=== PATIENT | female | born 1990 ===

== ENCOUNTER 2017-08-30 16:31 | Emergency (ER) | payer OTHER ==
[2017-08-30 16:46] VITALS: PULSE 75; RESP 16; O2SAT 100
[2017-08-30] MEDS ORDERED: Sodium Chloride 0.9% 1,000 ML IV ONE (17:18)
--- NOTE | 2017-08-30 18:00 | ED PDOC ---
HPI: Female Pain Time Seen by Provider: 08/30/17 17:07 Chief Complaint (Nursing): Abdominal Pain History Per: Patient, Equities Trader (burse pillar) History/Exam Limitations: no limitations Onset/Duration Of Symptoms: Days (1 week), Gradual Current Symptoms Are (Timing): Still Present Severity: Mild Quality Of Discomfort: Dull, Cramping Associated Symptoms: Nausea, Vomiting. denies: Fever, Chills, Diarrhea, Back Pain, Chest Pain, Constipation, Urinary Symptoms Alleviating Factors: None Additional History Per: Patient Abnormal Vaginal Bleeding: No Past Medical History Reviewed: Historical Data, Nursing Documentation, Vital Signs Vital Signs: Last Vital Signs Temp 97.6 F 08/30/17 16:43 Pulse 75 08/30/17 16:43 Resp 16 08/30/17 16:43 BP 116/68 08/30/17 16:43 Pulse Ox 100 08/30/17 16:43 - Medical History PMH: No Chronic Diseases - Family History Family History: States: Unknown Family Hx - Living Arrangements Living Arrangements: With Family - Social History Current smoker - smoking cessation education provided: No - Home Medications Home Medications: Ambulatory Orders Medication Instructions Recorded Multivit/Folic Acid/I 1 tab PO DAILY #30 tab 08/30/17 [ Plus] - Allergies Allergies/Adverse Reactions: Allergies Allergy/AdvReac Type Severity Reaction Status Date / Time No Known Allergies Allergy Verified 08/30/17 16:43 Review of Systems ROS Statement: Except As Marked, All Systems Reviewed And Found Negative Constitutional: Negative for: Fever, Chills Cardiovascular: Negative for: Chest Pain, Palpitations Respiratory: Negative for: Cough, Shortness of Breath Gastrointestinal: Positive for: Nausea, Vomiting Genitourinary Female: Positive for: Pelvic Pain. Negative for: Vaginal Discharge, Vaginal Bleeding Neurological: Negative for: Weakness, Numbness Physical Exam - Reviewed Vital Signs Reviewed: Yes - Physical Exam Appears: Positive for: Uncomfortable Head Exam: Positive for: ATRAUMATIC, NORMAL INSPECTION, NORMOCEPHALIC Eye Exam: Positive for: Normal appearance. Negative for: Nystagmus, Periorbital swelling, Periorbital tenderness, Conjunctival injection, Scleral icterus Neck: Positive for: Normal, Painless ROM, Supple. Negative for: Decreased ROM, Limited ROM, Trachea Midline, Pain On Movement Of Neck Cardiovascular/Chest: Positive for: Regular Rate, Rhythm, Chest Non Tender. Negative for: Edema, Gallop, Murmur, Bradycardia, Tachycardia Respiratory: Positive for: Normal Breath Sounds. Negative for: Decreased Breath Sounds, Accessory Muscle Use, Crackles, Rales, Rhonchi, Stridor, Wheezing Pulses-Radial (L): 2+ Pulses-Radial (R): 2+ Gastrointestinal/Abdominal: Positive for: Normal Exam, Bowel Sounds, Soft. Negative for: Tenderness Back: Positive for: Normal Inspection. Negative for: L CVA Tenderness, R CVA Tenderness Extremity: Positive for: Normal ROM. Negative for: Tenderness, Pedal Edema, Calf Tenderness, Deformity, Swelling Neurologic/Psych: Positive for: Alert, hand cooper helper II-XII, Oriented. Negative for: Motor/Sensory Deficits - Laboratory Results Result Diagrams: 08/30/17 18:19 08/30/17 18:19 - ECG O2 Sat by Pulse Oximetry: 100 - Progress ED Course And Treament: Uterus: Single intrauterine gestation identified. pole and yolk sac are seen. Estimated gestational age is 7 weeks, 6 days, based on the crown rump length. Estimated delivery date is 04/15/2018. heart motion visualized, at 189 beats per minute. Note that the anatomy, amniotic fluid volume, and placental position cannot be evaluated at this early gestational age. A large 3.5 x 2.7 cm round, well-defined cystic mass is identified in the cervix, which appears minimally complex, containing low level echoes. This most likely represents a large Nabothian cyst. Cervix appears closed, and is normal in length, measuring 3.8 cm. advise vitamins and close f/u with ob. all of pt's questions were answered and pt agree's with plan, repepat abd exam non tender. pt leaves ambulatory and in good spirits. Re-evaluation Time: 20:00 Condition: Improved Disposition - Clinical Impression Clinical Impression: - Patient ED Disposition Is Patient to be Admitted: No Counseled Patient/Family Regarding: Studies Performed, Diagnosis, Need For Followup - Disposition Referrals: [facility] [Outside] (2 to 3 days) Disposition: Routine/Home Disposition Time: 20:00 Condition: GOOD Prescriptions: Multivit/Folic Acid/I [ Plus] 1 tab PO DAILY #30 tab Instructions: - The Second Month Forms: [employer] (Serbian)
[2017-08-30 18:31] LABS: SQUAMOUS EPITHIAL 1 /hpf (0-5); URINE BACTERIA RARE (<OCC); URINE BILIRUBIN NEGATIVE (NEGATIVE); URINE BLOOD NEGATIVE (NEGATIVE); URINE CLARITY SLIGHTY-CLOUDY (Clear); URINE COLOR YELLOW (YELLOW); URINE GLUCOSE (UA) NEG (Normal); URINE LEUKOCYTE ESTERASE TRACE Leu/uL (Negative); URINE PROTEIN NEGATIVE (NEGATIVE); URINE UROBILINOGEN 0.2-1.0 mg/dL (0.2-1.0)
[2017-08-30 18:36] LABS: BASO % 0.1 % (0.0-2.0); EOS # 0.1 K/uL (0.0-0.7); EOS % 0.7 % (0.0-4.0); HEMOGLOBIN 12.8 g/dL (12.0-16.0); LYMPH # 2.7 K/uL (1.0-4.3); LYMPH % 29.1 % (20.0-40.0); MEAN CORPUSCULAR HEMOGLOBIN 29.7 pg (27.0-31.0); MEAN CORPUSCULAR HGB CONC 34.1 g/dL (33.0-37.0); MEAN PLATELET VOLUME 8.1 fl (7.2-11.7); MONO # 0.7 K/uL (0.0-0.8); MONO % 7.4 % (0.0-10.0); NEUT # 5.8 K/uL (1.8-7.0); NEUT % 62.7 % (50.0-75.0); NRBC % 0.1 % (0.0-0.0); RBC 4.31 Mil/uL (3.80-5.20); RED CELL DISTRIBUTION WIDTH 12.8 % (11.5-14.5); WHITE BLOOD COUNT 9.3 K/uL (4.8-10.8)
[2017-08-30 18:40] LABS: ALB/GLOB RATIO 1.2 (1.0-2.1); ALBUMIN 4.2 g/dL (3.5-5.0); ALT/SGPT 32 U/L (9-52); AST/SGOT 29 U/L (14-36); BLOOD UREA NITROGEN 12 mg/dl (7-17); CALCIUM 9.3 mg/dL (8.4-10.2); GFR AFRICAN-AMERICAN > 60; GFR NON-AFRICAN AMERICAN > 60; LIPASE 86 U/L (23-300)
--- NOTE | 2017-08-30 20:26 | US ---
EXAM: US , Transvaginal EXAM DATE/TIME: 08/30/2017 5:28 PM CLINICAL HISTORY: 27 years old, female; Pain; complicated by abdominal or pelvic pain; Lower; First trimester; Gestational age or lmp: 06/30/2017; ; Additional info: Pain R/O ectopic TECHNIQUE: Real-time transvaginal obstetrical ultrasound of the maternal pelvis and a first trimester with image documentation. Transvaginal imaging was used for better evaluation of the fetus and adnexa. COMPARISON: No relevant prior studies available. FINDINGS: Uterus: Single intrauterine gestation identified. pole and yolk sac are seen. Estimated gestational age is 7 weeks, 6 days, based on the crown rump length. Estimated delivery date is 04/15/2018. heart motion visualized, at 189 beats per minute. Note that the anatomy, amniotic fluid volume, and placental position cannot be evaluated at this early gestational age. A large 3.5 x 2.7 cm round, well-defined cystic mass is identified in the cervix, which appears minimally complex, containing low level echoes. This most likely represents a large Nabothian cyst. Cervix appears closed, and is normal in length, measuring 3.8 cm. Right ovary: Within normal limits in appearance. Measures 2.5 x 2.0 x 1.8 cm. Flow seen in the right ovary on color and Doppler imaging, with no evidence of torsion. Left ovary: Within normal limits in appearance. Measures 2.4 x 1.5 x 1.4 cm. Flow seen in the left ovary on Doppler imaging, with no evidence of torsion. Cul de sac: No free fluid. IMPRESSION: 7 week, 6 day intrauterine with heart motion. 3.5 cm round, cystic mass in the cervix. Most likely, this represents a large nabothian cyst. See above for remaining findings.
[2017-08-30 21:02] VITALS: BP 104/61; TEMP 98.3
[2017-08-31 09:37] LABS: AMYLASE 101 U/L (30-110)
== END 2017-08-30 21:20 | disposition home or self-care (01) ==
LOC: H.ER 16:31
DX: O26.891 Other specified pregnancy related conditions, first trimester (principal); Z3A.01 Less than 8 weeks gestation of pregnancy

== ENCOUNTER 2018-03-30 14:16 | Emergency (ER) | payer MEDICAID, SELFPAY ==
[2018-03-30 22:18] VITALS: BP 102/58; PULSE 68; TEMP 97.9
== END 2018-03-30 16:25 | disposition home or self-care (01) ==
LOC: H.EROB2 14:16
DX: O26.853 Spotting complicating pregnancy, third trimester (principal); Z3A.38 38 weeks gestation of pregnancy

== ENCOUNTER 2018-04-03 09:10 | Inpatient (IN) | payer MEDICAID, SELFPAY ==
[2018-04-03 09:45] VITALS: BMI 27.1
[2018-04-03] MEDS ORDERED: Oxytocin 30 UNIT 30 UNITS/500 ML BAG IV ONE ×2 (10:06)
[2018-04-03] MEDS ORDERED: Lactated Ringer's 1,000 ML IV ONE (10:06)
[2018-04-03] MEDS ORDERED: OXYTOCIN/0.9 % NS 20 UNIT/1,000 ML BAG IV SCH (10:15)
[2018-04-03] MEDS ORDERED: Lactated Ringer's 1,000 ML IV SCH ×2 (10:15→14:28)
[2018-04-03 10:58] LABS: BASO % 0.3 % (0.0-2.0); EOS # 0.1 K/uL (0.0-0.7); EOS % 0.8 % (0.0-4.0); LYMPH # 2.1 K/uL (1.0-4.3); LYMPH % 25.3 % (20.0-40.0); MEAN CORPUSCULAR HEMOGLOBIN 28.3 pg (27.0-31.0); MEAN CORPUSCULAR HGB CONC 32.9 g/dL (33.0-37.0); MEAN PLATELET VOLUME 8.5 fl (7.2-11.7); MONO # 0.5 K/uL (0.0-0.8); MONO % 6.2 % (0.0-10.0); NEUT # 5.5 K/uL (1.8-7.0); NEUT % 67.4 % (50.0-75.0); NRBC % 0.1 % (0.0-0.0); RBC 4.61 Mil/uL (3.80-5.20); RED CELL DISTRIBUTION WIDTH 15.7 % (11.5-14.5); WHITE BLOOD COUNT 8.2 K/uL (4.8-10.8)
[2018-04-03] MEDS ORDERED: Lidocaine 2% MPF (5 ml) Inj ONE (11:01)
[2018-04-03] MEDS ORDERED: Oxycodone/Acetaminophen 5/325 mg Tab PO PRN ×2 (11:49→14:28)
[2018-04-03] MEDS ORDERED: Benzocaine/Menthol SPRAY TOP PRN (11:49)
--- NOTE | 2018-04-03 12:31 | OBDS ---
DELIVERY PERSONNEL Delivery Doctor: Soila Marina MD Senior Account Executive: Donny Nielsen ANueva Resident: Dr. Stas Miles MATERNAL INFORMATION Delivery Anesthesia: Local Medications in Delivery: 2% lidocaine, 30 units/500 ml pitocin Estimated Blood Loss (ml): 200 Placenta Cultured: No Maternal Complications: Precipitous Labor (<3hrs) Provider Comments: OB Staff: Dr Marina, Dr Mcclelland PGY-3, Dr Medina PGY-1 of term live male infant (11:20am), LOP over intact perineum without epidural anesthesia. Tra ce meconium, infant suctioned at perineum, no nuchal cord. Spontaneous delivery of placenta (11:27am) with 3-vessel cord. 2nd degree laceration at 6 0' clock repaired with 3-0 vicryl. EBL 200cc. Indy Mcclelland Attending Note; Delivery of baby was conducted with the Resident and I agree with the [facility] slime. LABOR SUMMARY EDC: 04/12/2018 00:00 No. Babies in Womb: 1 Attempted: No Labor Anesthesia: None LABOR INFORMATION Reason for Induction: Not Applicable Onset of Labor: 04/03/2018 00:00 Complete Dilatation: 04/03/2018 11:10 Oxytocin: Augmentation Group B Beta Strep: Negative Antibiotics # of Doses: 0 Antibiotics Time of Last Dose: n/a Steroids Given: None Reason Steroids Not Administered: Not Applicable MEMBRANES Membranes Rupture Method: Spontaneous Rupture of Membranes: 04/03/2018 07:00 Length of Rupture (hrs): 4.33 Amniotic Fluid Color: Clear Amniotic Fluid Amount: Scant Amniotic Fluid Odor: None STAGES OF LABOR Stage 1 hrs: 11 Stage 1 min: 10 Stage 2 hrs: 0 Stage 2 min: 10 Stage 3 hrs: 0 Stage 3 min: 7 Total Time in Labor hrs: 11 Total Time in Labor min: 27 VAGINAL DELIVERY Episiotomy: None Laceration Extension: Second Degree Laceration Type: Perineal Laceration Repair: Yes Laceration Repair Note: 2% lidocaine w/o epi for local anesthesia and 3-0 vicryl, running repair wit h good hemostasis and approximation of tissue. No noted defects after repair and patient tolerated pr ocedure well. Initial Vag Sponge Count: 5 Final Vag Sponge Count: 5 Initial Vag Sharps Count: 1 Final Vag Sharps Count: 1 Sponge Count Correct: Yes Sharps Count Correct: Yes BABY A INFORMATION Infant Delivery Date/Time: 04/03/2018 11:20 Method of Delivery: Vaginal Born in Route : No : N/A Forceps: N/A Vacuum Extraction: N/A Shoulder Dystocia : No SHOULDER DYSTOCIA BABY A Delivery Date/Time: 04/03/2018 11:20 PRESENTATION/POSITION BABY A Presentation: Cephalic Cephalic Presentation: Vertex Breech Presentation: N/A PLACENTA INFORMATION BABY A Placenta Delivery Time : 04/03/2018 11:27 Placenta Method of Delivery: Spontaneous Placenta Status: Delivered SCORES BABY A Heart Rate 1 min: >100 bpm Resp Effort 1 min: Good Cry Reflex Irritability 1 min: Cough or Sneeze or Pulls Away Muscle Tone 1 min: Active Motion Color 1 min: Body Rodey, Extremities Blue Resuscitation Effort 1 min: N/A SCORE 1 MIN: 9 Heart Rate 5 min: >100 bpm Resp Effort 5 min: Good Cry Reflex Irritability 5 min: Cough or Sneeze or Pulls Away Muscle Tone 5 min: Active Motion Color 5 min: Body Rodey, Extremities Blue Resuscitation Effort 5 min: N/A SCORE 5 MIN: 9 INFORMATION BABY A Gestational Age at Delivery: 38.5 Gestational Status: Term Outcome : Liveborn Infant Condition : Stable Infant Sex: Male IDENTIFICATION/MEDS BABY A ID Band Number: [id number] ID Band Location: Left Leg; Left Arm WEIGHT/LENGTH BABY A Infant Birthweight (gms): 2980 Infant Weight (lb): 6 Weight (oz): 9 CORD INFORMATION BABY A No. Cord Vessels: 2 Nuchal Cord : N/A Cord Blood Taken: Yes Infant Suction: Mouth
[2018-04-03] MEDS: Benzocaine/Menthol SPRAY TOP PRN ×2 (15:13→22:18)
--- NOTE | 2018-04-03 15:53 | OBADHP ---
Datetime: 04/03/2018 09:53 Admit Comment, IP Provider: Voice:[id number] Pt is a 27 yo 38.5wk PIERCE 04/12/18 based on U/S done on 08/30/17 came to the ED for contract ions that started last night at midnight and suspected ROM this morning at 7 am. Pt has been having c ontractions every 5-6 mins. Denies vaginal bleeding, and states the baby is moving well. Denies heada margarita, blurry vision, chest pain, SOB, nausea, vomiting, diarrhea, constipation or dysuria. PNC: Patient sees Dr. Mcclelland in [facility] PNL: unremarkable, GBS negative, ABO: O+, TDap 01/28/18, glucose 1Hr-96 OBHx: 2013-- denies complications Grants Director hx: Pap smear done last year- pt reports normal, No hx of STD's, last sexually active last wee k PMHx:None Meds: Allergies: NKDA Family Hx:None Surg Hx: Appendicitis- 2011 (scar-low transverse incision) Social: Denies alcohol, smoking or drug use PE: HEENT: NCAT, PERRLA CV: RRR, +S1,S2, no murmurs, rubs or gallops RESP: CTA, no wheezing, rales or rhonchi Abdomen: Soft, nontender, normal bowel sounds appreciated, Low transverse incision noted- pt state d from Appendix removal Grants Director: Grossly ruptured membranes-yellow/white fluid, 7cm dilated, + Nitrazine test Extremities: No edema noted A/P Pt is a 27 yo admitted for spontaneous rupture of membranes in active labor -Admit to unit initate labor protocal -Monitor heart tracings -Start Oxytocin -Pain control -Lactated Ringers @125ml/hr Case reveiwed and discussed with Dr. Cindy Medina PGY-1 Attending Note: Patient was seen and examined with resident and I agree with the above. Pelvic Type - PN: Adequate Extremities - PN: Normal Abdomen - PN: Normal Back - PN: Normal Breast - PN: Not Done Lungs - PN: Normal Heart - PN: Normal Thyroid - PN: Not Done Neurologic - PN: Normal HEENT - PN: Normal General - PN: Normal Presentation-Admit: Vertex FHR - Baseline A Provider: 140 Amniotic Fluid Color, Provider: Meconium, Light Membranes, Provider: Ruptured Contraction Comments Provider: Q2-4 Gestation - Est Wks by US: 38.5 Pool Provider: Positive Nitrazine Provider: Positive IP Hx Assessment: The History has been Reviewed and is Current Vital Signs Provider: Reviewed IP Chief Complaint: Uterine contractions; Suspected ruptured membranes NICHD Variability Prov Fetus A: Moderate 6-25bpm NICHD Accel Fetus A IP Provider: [id number] FHR Category Provider Fetus A: Category I NICHD Decel Fetus A IP Provider: None Dilatation, Provider: 7 Effacement, Provider: 70 Station, Provider: -2 Genitourinary Exam: Normal DTRs - PN: Normal EGA AdmitDate IP: 38.5 IP Adm Impression: Term, intrauterine ; Active labor; Ruptured Membranes IP Admit Plan: Admit to unit; Initiate labor protocol
[2018-04-04 05:43] LABS: HEMOGLOBIN 10.9 g/dL (12.0-16.0); MEAN CELL VOLUME 86.4 fl (81.0-99.0); MEAN CORPUSCULAR HEMOGLOBIN 28.6 pg (27.0-31.0); MEAN CORPUSCULAR HGB CONC 33.1 g/dL (33.0-37.0); RBC 3.8 Mil/uL (3.80-5.20); WHITE BLOOD COUNT 10.3 K/uL (4.8-10.8)
[2018-04-04] MEDS: Benzocaine/Menthol SPRAY TOP PRN (05:59)
--- NOTE | 2018-04-04 07:49 | OBPPN ---
Datetime: 04/04/2018 07:02 PP Pain Prov: Within normal limits PP Nausea Prov: Denies PP Flatus Prov: Yes PP BM Prov: Yes PP Breasts Prov: Not Done PP Heart Prov: Normal PP Lungs Prov: Normal PP Abdomen/Uterus Prov: Normal PP Lochia Prov: Normal PP Vulva/Perineum Prov: Not Done PP CVA Tenderness Prov: Not Done PP Extremities Prov: Normal PP C/S Incision Prov: Not Applicable PP Progress Prov: Normal PP Impression Prov: Normal progression PP Plan Prov: Continue present management PP Progress Note Prov: S: 27 yo s/p NVD on 04/03/2018 at 11:20 am. Pt. is seen and examined at bedside this AM. No significant overnight events. Pt reports occasional abdominal pain, but well cont rolled with pain meds. Pt sitting up comfortably without any difficulty. Breast and bottle feeding ba by. Tolerating diet. Lochia is similar to light menses in volume. Patient voiding without difficultie s and reports passing gas and one bowel movement. Denies fever, chills, diarrhea, nausea, vomiting, c hest pain, dyspnea, and dizziness. O: VS: stable GEN: NAD Cardio: S1S2, no M/G/R Resp: clear breath sounds b/l Abdomen: BS+, NT, Uterus is firm and at the level of the umbilicus. EXT: No edema, calves non-tender NEURO/PSYCHI: normal affect and mood Assessment/Plan: 27 yo s/p NVD on 04/03/2018 at 11:20 am. Pt remains afebrile, tolerating keith n with medication, tolerating PO, doing well on PPD 1. OOB with caution -Patient sitting up without difficulty -Ibuprofen 600mg for pain. -Colace 100mg PO BID/Senokot 17.2 mg qHS for constipation -Encourage -F/u CBC post-delivery: pending -Anticipated d/c to home, 04/05/2018. Case discussed with Dr. Lazo --- Valerie Marie, PGY1 OB Hospitalist Addendum: Pt seen and examined. Agree w/ above. PPD 1 s/p VD, doing well, breast and bottle feeding. Continue current management. (ES) IP PP Procedures: None
[2018-04-04] MEDS: Multivitamin With Minerals Tab PO SCH (08:33)
[2018-04-04] MEDS ORDERED: Multivitamin With Minerals Tab PO SCH (09:00)
[2018-04-04] MEDS ORDERED: Influenza Vaccine (5 YR UP)/PF 60 MCG/0.5 ML SYR IM ONE (09:00)
--- NOTE | 2018-04-05 08:46 | OBPPN ---
Datetime: 04/05/2018 05:59 PP Pain Prov: Within normal limits PP Nausea Prov: Denies PP Flatus Prov: Yes PP BM Prov: Yes PP Breasts Prov: Not Done PP Heart Prov: Normal PP Lungs Prov: Normal PP Abdomen/Uterus Prov: Normal PP Lochia Prov: Normal PP Vulva/Perineum Prov: Normal PP CVA Tenderness Prov: Normal PP Extremities Prov: Normal PP C/S Incision Prov: Not Applicable PP Progress Prov: Normal PP Impression Prov: Normal progression PP Plan Prov: Discharge PP Progress Note Prov: S: Patient seen this morning at bedside, she is now s/p on 04/03/18 , on her PPD 2. Pt has no complaints today. Reports minimal abdominal pain and did not ask for pain m edication last night, she is tolerating liquid diet w/o N/V, ambulating to bathroom without any diffi culties, lochia is less than menses in volume, Breast feeding w/o difficulty and using formula as com plementary. Patient reports both flatus and BM today. O: VS WNL PE: GEN: NAD HEENT: EOMI, Mucous membrane moist. RESP: CTA b/l CV: RRR, no murmurs heard ABD: soft, non-tender, uterus firm below umbilicus LE: No edema, Juan's negative. A/P 27 y/o now s/p on 04/03/18, going into her PPD2 today with normal post- progressio n. Patient is stable to be D/C home. -Encourage ambulation -Encourage -PNV 1 tab PO daily -Ibuprofen 600mg 1 tab Q6h prn for mild-mod pain -D/C home today Henrietta Arnold MD PGY1 OB Hospitalist on-call. On rounds, I saw this patient...agree with PGY1 note MAHNDO IP PP Procedures: None Vital Signs Provider PP: Reviewed; Within Normal Limits
--- NOTE | 2018-04-05 08:46 | OBDCSUM ---
Datetime: 04/05/2018 06:00 Discharged to, Provider: Home Follow up at, Provider: Dr. Mcclelland [facility] Disch Instr Activity: Normal activity; May Shower Disch Instr Diet: Regular Discharge Instructions, Provider: Routine instructions given Discharge Diagnosis, Provider: Term Delivered Discharge Time: 04/05/2018 10:00 Follow up in weeks, Provider: 05/06/18 @ 9:30 am Disch Referrals: None Contraception discussed, Prov: Yes Disch Activity Restrictions: No exercising; No lifting; No sexual activity; Nothing in vagina - Inte rcourse, tampons, douche Discharge Comment, Provider: EGA: 38.5 wk Diagnosis: 27 y/o , s/p on 04/03/18 @ 11:20 am. She delivered a baby boy, Wt 2980g, AP GAR 02/28 Summary: Patient is PPD2 with normal progression. No complications during post- period. Loch ia less than menses. Pt was able to pass gas and had BM, She is tolerating regular diet, Fundus firm below umbilicus, able to ambulate w/o any difficulties, voiding well, denies fever, chills, GERARDO, SOB, N/V, calf pain. CBC post-: 10.9/32.8 Discharge Instructions: Continue and increase PNV 1 tab PO daily Ibuprofen 600mg 1 tab PO Q6h prn for mild-mod pain Pt is planning to use OCP's until receiving an IUD in clinic at PP visit. Instructions given to patient: If excessive bleeding, return of pain or increasing pain and/or fev er without relief from medication, go to ED PT was urged if feeling sad, mood swing, depression, neglect of baby, suicidal thoughts, homicidal thought should go to ED or call 911 for help Pt should go to her Primary care doctor if she has difficulty with F/U post- visit Dr. Mcclelland in [facility] 05/06/18 @ 9:30 am. Henrietta Arnold MD PGY1 OB Hospitalist on-call. On , I saw this patient...agree with PGY1 note MAHNDO Discharge Diagnosis Prov Other: ocp until recieving IUD Contraception after Delivery: Control Pill/Patch; IUD
[2018-04-05] MEDS: Multivitamin With Minerals Tab PO SCH (08:55)
[2018-04-05 18:29] VITALS: BP 96/47; PULSE 80; RESP 18; TEMP 98.6; O2SAT 100
== END 2018-04-05 13:50 | disposition home or self-care (01) | DRG 373 ==
LOC: H.EROB2 09:10 → H.L&D 09:41 → H.EROB2 10:05 → H.L&D 10:06 → H.OB/GYN 14:00
PROVIDERS: ADMIT Obstetrics & Gynecology; ATTEND Obstetrics & Gynecology
PROC: 10E0XZZ Delivery of Products of Conception, External Approach (ICD-10-PCS; principal; 2018-04-03)
PROC: 0KQM0ZZ Repair Perineum Muscle, Open Approach (ICD-10-PCS; 2018-04-03)
PROC: 4A1HXCZ Monitoring of Products of Conception, Cardiac Rate, External Approach (ICD-10-PCS; 2018-04-03)
PROC: 3E02340 Introduction of Influenza Vaccine into Muscle, Percutaneous Approach (ICD-10-PCS; 2018-04-04)
DX: O77.0 Labor and delivery complicated by meconium in amniotic fluid (principal); O70.1 Second degree perineal laceration during delivery; O62.3 Precipitate labor; Z37.0 Single live birth; Z3A.38 38 weeks gestation of pregnancy; Z23 Encounter for immunization